=== PATIENT | female | born 1985 | race Caucasian/White ===

== ENCOUNTER 2017-04-05 11:04 | Inpatient (IN) | payer OTHER ==
[~2017-04-05 11:04] MED LIST: CEFAZOLIN 1 GM INJ
[2017-04-05] MEDS ORDERED: BUPIVACAINE 0.5% (SDV) 30 ML INJ (11:56)
[2017-04-05] MEDS ORDERED: LIDOCAINE 1%/EPI 30 ML INJ (11:56)
[2017-04-05] MEDS ORDERED: POLYMYXIN/BACITRACIN 1L IRRIG (11:57)
[2017-04-05] MEDS ORDERED: THROMBIN 5000 UNIT VIAL (11:57)
[2017-04-05] MEDS ORDERED: GELATIN SIZE 100 SPONGE (11:57)
[2017-04-05] MEDS ORDERED: METOCLOPRAMIDE 10 MG INJ (12:43)
[2017-04-05] MEDS ORDERED: ROCURONIUM 50 MG INJ (12:43)
[2017-04-05] MEDS ORDERED: MIDAZOLAM 1 MG/ML 2 ML INJ (12:43)
[2017-04-05] MEDS ORDERED: ONDANSETRON 4 MG INJ (12:43)
[2017-04-05] MEDS ORDERED: PROPOFOL 20 ML (12:43)
[2017-04-05] MEDS ORDERED: DIPHENHYDRAMINE 50 MG INJ (13:03)
[2017-04-05] MEDS ORDERED: DEXAMETHASONE 4 MG/ML 1 ML INJ (13:03)
[2017-04-05] MEDS ORDERED: HYDROmorphONE 2 MG/ML SYG (13:07)
[2017-04-05] MEDS ORDERED: METOPROLOL 5 MG INJ (13:27)
[2017-04-05] MEDS ORDERED: HYDROmorphONE (0.2 MG/ML) 10ML SYG IV ×2 (13:30)
[2017-04-05] MEDS ORDERED: DIPHENHYDRAMINE 50 MG INJ IV ×2 (13:30→15:00)
[2017-04-05] MEDS ORDERED: MEPERIDINE 25 MG INJ IV (13:30)
[2017-04-05] MEDS ORDERED: ONDANSETRON 4 MG INJ IV (13:30)
[2017-04-05] MEDS: BUPIVACAINE 0.5% 30 ML VIAL INJ (13:41)
[2017-04-05] MEDS: LIDOCAINE 1%/EPI 30 ML INJ INJ (13:41)
[2017-04-05] MEDS: POLYMYXIN/BACITRACIN 1L IRRIG IRR (13:42)
[2017-04-05] MEDS ORDERED: FENTAnyl 50 MCG/ML VIAL ×2 (14:32→15:10)
[2017-04-05] MEDS ORDERED: NALOXONE (0.4 MG/ML) INJ IV (15:00)
[2017-04-05] MEDS ORDERED: HYDROCODONE/APAP (10/325) TAB PO (16:30)
[2017-04-05] MEDS: HYDROmorphONE 0.2 MG/ML PCA IV (17:09)
[2017-04-05] MEDS: HYDROmorphONE (0.2 MG/ML) 10ML SYG IV (17:10)
[2017-04-05] MEDS: DEXTROSE 5%-LR 1,000 ML IV (18:45)
[2017-04-05] MEDS: ATORVASTATIN 40 MG TAB PO (21:13)
[2017-04-05] MEDS: CEFAZOLIN 1 GM/50 ML (PMX) 50 ML IVPB (21:13)
[2017-04-05] MEDS: CYCLOBENZAPRINE 10 MG TAB PO (23:40)
[2017-04-05] MEDS: OXYCODONE/ACETAMINOPHEN (5/325) TAB PO (23:55)
[2017-04-06] MEDS: HYDROmorphONE 0.2 MG/ML PCA IV ×2 (00:45→12:14)
[2017-04-06] MEDS: DEXTROSE 5%-LR 1,000 ML IV ×2 (02:30→03:54)
[2017-04-06] MEDS: OXYCODONE/ACETAMINOPHEN (5/325) TAB PO ×3 (03:55→21:09)
[2017-04-06] MEDS: CEFAZOLIN 1 GM/50 ML (PMX) 50 ML IVPB ×3 (05:07→21:08)
[2017-04-06] MEDS: DOCUSATE SODIUM 100 MG CAP PO ×2 (12:00→21:08)
[2017-04-06] MEDS: DEXAMETHASONE 4 MG/ML 1 ML INJ IV ×2 (12:12→21:08)
[2017-04-06] MEDS: AL HYDROX/MG HYDROX/SIMETH 30 ML CUP PO (12:22)
[2017-04-06 13:15] LABS: ADD MAN DIFF? NO
[2017-04-06 13:17] LABS: BASOPHILS % 0.2 % (0.0-2.0); EOSINOPHILS # 0.1 10^3/ul (0.0-0.5); EOSINOPHILS % 0.4 % (0.0-7.0); HEMATOCRIT 31.8 % (37.0-47.0); HEMOGLOBIN 10.6 g/dl (12.0-16.0); LYMPHOCYTES # 3.4 10^3/ul (0.8-2.9); LYMPHOCYTES % 20.4 % (15.0-51.0); MEAN CORPUSCULAR HEMOGLOBIN 28.6 pg (29.0-33.0); MEAN CORPUSCULAR HGB CONC 33.3 g/dl (32.0-37.0); MEAN CORPUSCULAR VOLUME 85.7 fl (82.0-101.0); MEAN PLATELET VOLUME 10.4 fl (7.4-10.4); MONOCYTE # 1.3 10^3/ul (0.3-0.9); MONOCYTES % 7.7 % (0.0-11.0); NEUTROPHIL # 11.7 10^3/ul (1.6-7.5); NEUTROPHILS % 70.8 % (39.0-77.0); PLATELET COUNT 207 10^3/UL (140-415); RED BLOOD COUNT 3.71 10^6/ul (4.20-5.40)
[2017-04-06 13:17] LABS: WHITE BLOOD COUNT 16.5 10^3/ul (4.8-10.8)
[2017-04-06 13:37] LABS: ANION GAP 10 (8-16); BLOOD UREA NITROGEN 8 mg/dl (7-20); CALCIUM 8.8 mg/dl (8.4-10.2); CARBON DIOXIDE 29 mmol/L (21-31); CHLORIDE 105 mmol/L (97-110); CREATININE 0.63 mg/dl (0.44-1.00); GLUCOSE 112 mg/dl (70-220); POTASSIUM 4.1 mmol/L (3.5-5.1); SODIUM 140 mmol/L (135-144)
[2017-04-06] MEDS: HYDROmorphONE 2 MG/ML SYG IV ×3 (15:29→23:35)
[2017-04-06] MEDS: ATORVASTATIN 40 MG TAB PO (21:08)
[2017-04-06] MEDS: CYCLOBENZAPRINE 10 MG TAB PO (21:09)
[2017-04-07] MEDS: DIPHENHYDRAMINE 50 MG INJ IV (00:12)
[2017-04-07] MEDS: OXYCODONE/ACETAMINOPHEN (5/325) TAB PO ×5 (02:10→19:40)
[2017-04-07] MEDS: HYDROmorphONE 2 MG/ML SYG IV ×5 (04:48→20:52)
[2017-04-07] MEDS: CYCLOBENZAPRINE 10 MG TAB PO ×2 (05:10→19:44)
[2017-04-07] MEDS: CEFAZOLIN 1 GM/50 ML (PMX) 50 ML IVPB ×3 (05:10→20:52)
[2017-04-07 05:38] LABS: ADD MAN DIFF? NO
[2017-04-07 05:44] LABS: WHITE BLOOD COUNT 18.7 10^3/ul (4.8-10.8)
[2017-04-07 05:44] LABS: BASOPHILS % 0.1 % (0.0-2.0); EOSINOPHILS % 0.1 % (0.0-7.0); HEMOGLOBIN 9.4 g/dl (12.0-16.0); LYMPHOCYTES # 1.8 10^3/ul (0.8-2.9); LYMPHOCYTES % 9.6 % (15.0-51.0); MEAN CORPUSCULAR HEMOGLOBIN 29.1 pg (29.0-33.0); MEAN CORPUSCULAR HGB CONC 33.6 g/dl (32.0-37.0); MEAN CORPUSCULAR VOLUME 86.7 fl (82.0-101.0); MEAN PLATELET VOLUME 10.9 fl (7.4-10.4); MONOCYTE # 0.8 10^3/ul (0.3-0.9); MONOCYTES % 4.5 % (0.0-11.0); NEUTROPHIL # 15.9 10^3/ul (1.6-7.5); NEUTROPHILS % 84.7 % (39.0-77.0); PLATELET COUNT 199 10^3/UL (140-415); RED BLOOD COUNT 3.23 10^6/ul (4.20-5.40); RED CELL DISTRIBUTION WIDTH 13.2 % (11.5-14.5)
[2017-04-07 06:17] LABS: ANION GAP 16 (8-16); BLOOD UREA NITROGEN 7 mg/dl (7-20); CALCIUM 8.8 mg/dl (8.4-10.2); CARBON DIOXIDE 29 mmol/L (21-31); CHLORIDE 106 mmol/L (97-110); CREATININE 0.62 mg/dl (0.44-1.00); GLUCOSE 127 mg/dl (70-220); POTASSIUM 4.6 mmol/L (3.5-5.1); SODIUM 146 mmol/L (135-144)
[2017-04-07] MEDS: DOCUSATE SODIUM 100 MG CAP PO ×2 (08:30→20:52)
[2017-04-07] MEDS: BISACODYL (EC) 5 MG TAB PO (11:38)
[2017-04-07] MEDS: HYDROmorphONE 0.5 MG/0.5 ML SYG IV (11:39)
[2017-04-07] MEDS: APIXABAN 5 MG TABLET PO (20:52)
[2017-04-07] MEDS: ATORVASTATIN 40 MG TAB PO (20:52)
[2017-04-07] MEDS: AL HYDROX/MG HYDROX/SIMETH 30 ML CUP PO (21:09)
[2017-04-08] MEDS: OXYCODONE/ACETAMINOPHEN (5/325) TAB PO ×7 (01:05→21:31)
[2017-04-08] MEDS: HYDROmorphONE 2 MG/ML SYG IV ×6 (02:19→23:50)
[2017-04-08 05:24] LABS: ADD MAN DIFF? NO
[2017-04-08 05:30] LABS: BASOPHILS % 0.3 % (0.0-2.0); EOSINOPHILS # 0.1 10^3/ul (0.0-0.5); EOSINOPHILS % 0.5 % (0.0-7.0); HEMATOCRIT 29.9 % (37.0-47.0); HEMOGLOBIN 9.7 g/dl (12.0-16.0); LYMPHOCYTES # 3.8 10^3/ul (0.8-2.9); LYMPHOCYTES % 29.3 % (15.0-51.0); MEAN CORPUSCULAR HEMOGLOBIN 28.5 pg (29.0-33.0); MEAN CORPUSCULAR HGB CONC 32.4 g/dl (32.0-37.0); MEAN CORPUSCULAR VOLUME 87.9 fl (82.0-101.0); MEAN PLATELET VOLUME 10.9 fl (7.4-10.4); MONOCYTE # 0.8 10^3/ul (0.3-0.9); MONOCYTES % 5.8 % (0.0-11.0); NEUTROPHIL # 8.2 10^3/ul (1.6-7.5); NEUTROPHILS % 63.3 % (39.0-77.0); PLATELET COUNT 158 10^3/UL (140-415); RED CELL DISTRIBUTION WIDTH 13.4 % (11.5-14.5)
[2017-04-08 06:36] LABS: ANION GAP 13 (8-16); BLOOD UREA NITROGEN 11 mg/dl (7-20); CALCIUM 8.3 mg/dl (8.4-10.2); CARBON DIOXIDE 29 mmol/L (21-31); CHLORIDE 107 mmol/L (97-110); CREATININE 0.66 mg/dl (0.44-1.00); GLUCOSE 135 mg/dl (70-220); POTASSIUM 3.6 mmol/L (3.5-5.1); SODIUM 145 mmol/L (135-144)
[2017-04-08] MEDS: DOCUSATE SODIUM 100 MG CAP PO ×2 (08:44→21:02)
[2017-04-08] MEDS: APIXABAN 5 MG TABLET PO ×2 (08:44→21:02)
[2017-04-08] MEDS: BISACODYL (EC) 5 MG TAB PO (08:47)
[2017-04-08] MEDS: CYCLOBENZAPRINE 10 MG TAB PO ×3 (09:47→21:30)
[2017-04-08] MEDS: ATORVASTATIN 40 MG TAB PO (21:02)
[2017-04-09] MEDS: HYDROmorphONE 2 MG/ML SYG IV (04:14)
[2017-04-09] MEDS: OXYCODONE/ACETAMINOPHEN (5/325) TAB PO ×2 (05:46→09:14)
[2017-04-09] MEDS: CYCLOBENZAPRINE 10 MG TAB PO (06:30)
[2017-04-09] MEDS: LORAZEPAM 2 MG INJ IV (06:31)
[2017-04-09] MEDS ORDERED: SUCCINYLCHOLINE CHLORIDE 100 MG/5 ML SYG IV (07:00)
[2017-04-09] MEDS ORDERED: EPHEDrine SULFATE 50 MG/5 ML SYG (07:00)
[2017-04-09] MEDS ORDERED: ROCURONIUM 50 MG INJ (07:00)
[2017-04-09] MEDS ORDERED: ESMOLOL 100 MG INJ (07:00)
[2017-04-09] MEDS ORDERED: CEFAZOLIN 1 GM INJ (07:00)
[2017-04-09] MEDS: DOCUSATE SODIUM 100 MG CAP PO ×2 (09:00→21:00)
[2017-04-09] MEDS: MAGNESIUM HYDROXIDE 30ML CUP PO (09:00)
[2017-04-09] MEDS: APIXABAN 5 MG TABLET PO (09:14)
[2017-04-09] MEDS: OXYCODONE/ACETAMINOPHEN (10/325) TAB PO ×3 (09:36→23:01)
[2017-04-09] MEDS ORDERED: MIDAZOLAM 1 MG/ML 2 ML INJ ×2 (13:45→13:49)
[2017-04-09] MEDS ORDERED: PROPOFOL 20 ML (13:45)
[2017-04-09] MEDS ORDERED: ONDANSETRON 4 MG INJ (13:46)
[2017-04-09] MEDS ORDERED: METOCLOPRAMIDE 10 MG INJ (13:46)
[2017-04-09] MEDS ORDERED: FENTAnyl 50 MCG/ML VIAL (13:49)
[2017-04-09] MEDS ORDERED: THROMBIN 5000 UNIT VIAL ×2 (13:59→14:04)
[2017-04-09] MEDS ORDERED: POLYMYXIN/BACITRACIN 1L IRRIG (13:59)
[2017-04-09] MEDS ORDERED: GELATIN SIZE 100 SPONGE (13:59)
[2017-04-09] MEDS ORDERED: LIDOCAINE 0.5% (MDV) 50 ML INJ (13:59)
[2017-04-09] MEDS ORDERED: DEXAMETHASONE 4 MG/ML 1 ML INJ (14:36)
[2017-04-09] MEDS ORDERED: HYDROmorphONE 2 MG/ML SYG (14:38)
[2017-04-09] MEDS ORDERED: PHENYLephrine (100 MCG/ML) 5ML SYG (14:39)
[2017-04-09] MEDS: POLYMYXIN/BACITRACIN 1L IRRIG IRR (14:56)
[2017-04-09] MEDS ORDERED: DIPHENHYDRAMINE 50 MG INJ IV ×2 (15:30→16:30)
[2017-04-09] MEDS ORDERED: HYDROmorphONE (0.2 MG/ML) 10ML SYG IV ×3 (15:30)
[2017-04-09] MEDS ORDERED: METOCLOPRAMIDE 10 MG INJ IV (15:30)
[2017-04-09] MEDS ORDERED: EPHEDrine SULFATE 50 MG/5 ML SYG IV (15:30)
[2017-04-09] MEDS ORDERED: NEOSTIGMINE 3 MG/3 ML SYRINGE (15:37)
[2017-04-09] MEDS: LIDOCAINE 1%/EPI 30 ML INJ (15:38)
[2017-04-09] MEDS ORDERED: ALBUMIN HUMAN 5% 250 ML (15:59)
[2017-04-09] MEDS: LIDOCAINE 1% (MPF) 5 ML VIAL SC (16:30)
[2017-04-09] MEDS ORDERED: HYDROmorphONE 0.5 MG/0.5 ML SYG IV ×2 (16:30)
[2017-04-09] MEDS ORDERED: OXYCODONE/ACETAMINOPHEN (5/325) TAB PO (16:30)
[2017-04-09] MEDS ORDERED: ONDANSETRON 4 MG INJ IV (16:30)
[2017-04-09] MEDS ORDERED: HYDROmorphONE 1 MG/ML SYG IV (16:30)
[2017-04-09] MEDS ORDERED: NALOXONE (0.4 MG/ML) INJ IV (16:30)
[2017-04-09] MEDS ORDERED: ACETAMINOPHEN 500 MG TAB PO (16:30)
[2017-04-09] MEDS: HYDROmorphONE 0.2 MG/ML PCA IV (16:35)
[2017-04-09] MEDS: MEPERIDINE 25 MG INJ IV (16:38)
[2017-04-09] MEDS: ONDANSETRON 4 MG INJ IV (16:38)
[2017-04-09] MEDS: DEXTROSE 5%-LR 1,000 ML IV ×2 (18:29→23:57)
[2017-04-09] MEDS: ATORVASTATIN 40 MG TAB PO (21:00)
[2017-04-09] MEDS: CEFAZOLIN 1 GM/50 ML (PMX) 50 ML IVPB (21:27)
[2017-04-10] MEDS: CYCLOBENZAPRINE 10 MG TAB PO ×2 (01:45→10:54)
[2017-04-10] MEDS: DEXTROSE 5%-LR 1,000 ML IV ×4 (03:27→22:04)
[2017-04-10] MEDS: CEFAZOLIN 1 GM/50 ML (PMX) 50 ML IVPB ×3 (05:06→22:44)
[2017-04-10 07:17] LABS: ADD MAN DIFF? NO
[2017-04-10 07:22] LABS: BASOPHILS % 0.1 % (0.0-2.0); HEMATOCRIT 26.6 % (37.0-47.0); HEMOGLOBIN 8.6 g/dl (12.0-16.0); LYMPHOCYTES # 1.2 10^3/ul (0.8-2.9); LYMPHOCYTES % 6.7 % (15.0-51.0); MEAN CORPUSCULAR HEMOGLOBIN 28.5 pg (29.0-33.0); MEAN CORPUSCULAR HGB CONC 32.3 g/dl (32.0-37.0); MEAN CORPUSCULAR VOLUME 88.1 fl (82.0-101.0); MEAN PLATELET VOLUME 10.2 fl (7.4-10.4); MONOCYTES % 5.8 % (0.0-11.0); NEUTROPHIL # 15.3 10^3/ul (1.6-7.5); NEUTROPHILS % 86.7 % (39.0-77.0); PLATELET COUNT 178 10^3/UL (140-415); RED BLOOD COUNT 3.02 10^6/ul (4.20-5.40)
[2017-04-10 07:22] LABS: WHITE BLOOD COUNT 17.6 10^3/ul (4.8-10.8)
[2017-04-10 07:37] LABS: PLATELET COUNT 178 10^3/UL (140-440)
[2017-04-10 07:39] LABS: INR 1.19; PROTIME 15.3 Sec (11.9-14.9); PT RATIO 1.2
[2017-04-10 07:40] LABS: PARTIAL THROMBOPLASTIN TIME 38.3 Sec (25.0-35.0)
[2017-04-10 07:50] LABS: ANION GAP 12 (8-16); BLOOD UREA NITROGEN 9 mg/dl (7-20); CALCIUM 8.5 mg/dl (8.4-10.2); CARBON DIOXIDE 30 mmol/L (21-31); CHLORIDE 108 mmol/L (97-110); CREATININE 0.63 mg/dl (0.44-1.00); GLUCOSE 133 mg/dl (70-220); POTASSIUM 4.9 mmol/L (3.5-5.1); SODIUM 145 mmol/L (135-144)
[2017-04-10] MEDS: DOCUSATE SODIUM 100 MG CAP PO ×2 (08:51→21:22)
[2017-04-10] MEDS: MAGNESIUM HYDROXIDE 30ML CUP PO ×2 (08:51→17:57)
[2017-04-10] MEDS: HYDROmorphONE 2 MG/ML SYG IV ×3 (09:28→22:05)
[2017-04-10] MEDS: HYDROmorphONE 0.2 MG/ML PCA IV (11:51)
[2017-04-10] MEDS: OXYCODONE/ACETAMINOPHEN (10/325) TAB PO ×2 (13:36→17:55)
[2017-04-10] MEDS: ATORVASTATIN 40 MG TAB PO (21:22)
[2017-04-10] MEDS: BISACODYL (EC) 5 MG TAB PO (22:12)
[2017-04-11] MEDS: DEXTROSE 5%-LR 1,000 ML IV (05:37)
[2017-04-11] MEDS: CEFAZOLIN 1 GM/50 ML (PMX) 50 ML IVPB ×3 (05:38→21:36)
[2017-04-11] MEDS: HYDROmorphONE 2 MG/ML SYG IV ×3 (05:46→20:19)
[2017-04-11] MEDS: morphine 2 MG INJ IV (08:14)
[2017-04-11 08:51] LABS: ADD MAN DIFF? NO
[2017-04-11 09:00] LABS: WHITE BLOOD COUNT 12.6 10^3/ul (4.8-10.8)
[2017-04-11 09:00] LABS: BASOPHILS % 0.2 % (0.0-2.0); EOSINOPHILS # 0.2 10^3/ul (0.0-0.5); EOSINOPHILS % 1.8 % (0.0-7.0); HEMATOCRIT 26.8 % (37.0-47.0); HEMOGLOBIN 8.5 g/dl (12.0-16.0); LYMPHOCYTES # 3.4 10^3/ul (0.8-2.9); LYMPHOCYTES % 27.3 % (15.0-51.0); MEAN CORPUSCULAR HEMOGLOBIN 28.3 pg (29.0-33.0); MEAN CORPUSCULAR HGB CONC 31.7 g/dl (32.0-37.0); MEAN CORPUSCULAR VOLUME 89.3 fl (82.0-101.0); MEAN PLATELET VOLUME 10.2 fl (7.4-10.4); MONOCYTE # 0.8 10^3/ul (0.3-0.9); MONOCYTES % 6.5 % (0.0-11.0); NEUTROPHILS % 63.8 % (39.0-77.0); PLATELET COUNT 202 10^3/UL (140-415); RED CELL DISTRIBUTION WIDTH 13.1 % (11.5-14.5)
[2017-04-11 09:23] LABS: ANION GAP 12 (8-16); BLOOD UREA NITROGEN 10 mg/dl (7-20); CALCIUM 8.1 mg/dl (8.4-10.2); CARBON DIOXIDE 30 mmol/L (21-31); CHLORIDE 106 mmol/L (97-110); CREATININE 0.66 mg/dl (0.44-1.00); GLUCOSE 80 mg/dl (70-220); POTASSIUM 4.1 mmol/L (3.5-5.1); SODIUM 144 mmol/L (135-144)
[2017-04-11 09:29] LABS: INR 0.92; PARTIAL THROMBOPLASTIN TIME 27.5 Sec (25.0-35.0); PROTIME 12.4 Sec (11.9-14.9)
[2017-04-11] MEDS: DOCUSATE SODIUM 100 MG CAP PO ×2 (09:29→21:33)
[2017-04-11] MEDS: OXYCODONE/ACETAMINOPHEN (10/325) TAB PO ×4 (09:29→21:35)
[2017-04-11] MEDS: CYCLOBENZAPRINE 10 MG TAB PO (11:01)
[2017-04-11] MEDS: ATORVASTATIN 40 MG TAB PO (21:33)
[2017-04-12] MEDS: HYDROmorphONE 2 MG/ML SYG IV ×6 (00:38→23:06)
[2017-04-12] MEDS: OXYCODONE/ACETAMINOPHEN (10/325) TAB PO ×4 (02:10→21:41)
[2017-04-12] MEDS: CEFAZOLIN 1 GM/50 ML (PMX) 50 ML IVPB ×3 (05:21→21:44)
[2017-04-12] MEDS: DOCUSATE SODIUM 100 MG CAP PO ×2 (08:04→20:47)
[2017-04-12] MEDS: MAGNESIUM HYDROXIDE 30ML CUP PO (10:04)
[2017-04-12] MEDS: HARD FAT/PHENYLEPHRINE SUPP PR ×2 (10:04→20:55)
[2017-04-12] MEDS: OXYCODONE/ACETAMINOPHEN (5/325) TAB PO (17:25)
[2017-04-12] MEDS: ATORVASTATIN 40 MG TAB PO (20:47)
[2017-04-13] MEDS: OXYCODONE/ACETAMINOPHEN (10/325) TAB PO ×6 (02:14→23:54)
[2017-04-13] MEDS: HYDROmorphONE 2 MG/ML SYG IV ×5 (05:11→21:11)
[2017-04-13 05:34] LABS: ADD MAN DIFF? NO
[2017-04-13 05:41] LABS: WHITE BLOOD COUNT 9.9 10^3/ul (4.8-10.8)
[2017-04-13 05:41] LABS: BASOPHILS % 0.2 % (0.0-2.0); EOSINOPHILS # 0.4 10^3/ul (0.0-0.5); EOSINOPHILS % 3.7 % (0.0-7.0); HEMATOCRIT 27.6 % (37.0-47.0); HEMOGLOBIN 8.8 g/dl (12.0-16.0); LYMPHOCYTES % 30.1 % (15.0-51.0); MEAN CORPUSCULAR HEMOGLOBIN 27.8 pg (29.0-33.0); MEAN CORPUSCULAR HGB CONC 31.9 g/dl (32.0-37.0); MEAN CORPUSCULAR VOLUME 87.1 fl (82.0-101.0); MEAN PLATELET VOLUME 9.9 fl (7.4-10.4); MONOCYTE # 0.6 10^3/ul (0.3-0.9); MONOCYTES % 6.2 % (0.0-11.0); NEUTROPHIL # 5.8 10^3/ul (1.6-7.5); NEUTROPHILS % 58.8 % (39.0-77.0); PLATELET COUNT 260 10^3/UL (140-415); RED BLOOD COUNT 3.17 10^6/ul (4.20-5.40); RED CELL DISTRIBUTION WIDTH 13.2 % (11.5-14.5)
[2017-04-13 06:15] LABS: ANION GAP 14 (8-16); BLOOD UREA NITROGEN 7 mg/dl (7-20); CALCIUM 8.8 mg/dl (8.4-10.2); CARBON DIOXIDE 31 mmol/L (21-31); CHLORIDE 104 mmol/L (97-110); CREATININE 0.68 mg/dl (0.44-1.00); GLUCOSE 108 mg/dl (70-220); POTASSIUM 4.7 mmol/L (3.5-5.1); SODIUM 144 mmol/L (135-144)
[2017-04-13] MEDS: CEFAZOLIN 1 GM/50 ML (PMX) 50 ML IVPB ×3 (06:17→22:13)
[2017-04-13] MEDS: DOCUSATE SODIUM 100 MG CAP PO ×2 (08:57→22:13)
[2017-04-13] MEDS: HARD FAT/PHENYLEPHRINE SUPP PR ×2 (08:57→21:00)
[2017-04-13] MEDS: MAGNESIUM HYDROXIDE 30ML CUP PO (08:57)
[2017-04-13] MEDS: PE/SHARK OIL/MO/PETROL 30 GM OINT PR (22:00)
[2017-04-13] MEDS: ATORVASTATIN 40 MG TAB PO (22:13)
[2017-04-13] MEDS: AL HYDROX/MG HYDROX/SIMETH 30 ML CUP PO (22:13)
[2017-04-14] MEDS: HYDROmorphONE 2 MG/ML SYG IV ×5 (00:55→14:03)
[2017-04-14] MEDS: OXYCODONE/ACETAMINOPHEN (10/325) TAB PO ×4 (03:52→23:15)
[2017-04-14 05:37] LABS: ADD MAN DIFF? NO
[2017-04-14] MEDS: CEFAZOLIN 1 GM/50 ML (PMX) 50 ML IVPB ×3 (05:37→21:16)
[2017-04-14 05:45] LABS: WHITE BLOOD COUNT 10.1 10^3/ul (4.8-10.8)
[2017-04-14 05:45] LABS: BASOPHILS % 0.2 % (0.0-2.0); EOSINOPHILS # 0.4 10^3/ul (0.0-0.5); EOSINOPHILS % 4.1 % (0.0-7.0); HEMATOCRIT 27.1 % (37.0-47.0); HEMOGLOBIN 8.6 g/dl (12.0-16.0); LYMPHOCYTES # 2.7 10^3/ul (0.8-2.9); LYMPHOCYTES % 27.1 % (15.0-51.0); MEAN CORPUSCULAR HEMOGLOBIN 27.7 pg (29.0-33.0); MEAN CORPUSCULAR HGB CONC 31.7 g/dl (32.0-37.0); MEAN CORPUSCULAR VOLUME 87.4 fl (82.0-101.0); MEAN PLATELET VOLUME 9.8 fl (7.4-10.4); MONOCYTE # 0.7 10^3/ul (0.3-0.9); MONOCYTES % 6.7 % (0.0-11.0); NEUTROPHIL # 6.1 10^3/ul (1.6-7.5); PLATELET COUNT 264 10^3/UL (140-415); RED CELL DISTRIBUTION WIDTH 13.1 % (11.5-14.5)
[2017-04-14 06:03] LABS: ANION GAP 13 (8-16); BLOOD UREA NITROGEN 8 mg/dl (7-20); CALCIUM 8.9 mg/dl (8.4-10.2); CARBON DIOXIDE 33 mmol/L (21-31); CHLORIDE 102 mmol/L (97-110); CREATININE 0.76 mg/dl (0.44-1.00); GLUCOSE 117 mg/dl (70-220); POTASSIUM 4.6 mmol/L (3.5-5.1); SODIUM 143 mmol/L (135-144)
[2017-04-14] MEDS: HARD FAT/PHENYLEPHRINE SUPP PR ×2 (09:00→20:29)
[2017-04-14] MEDS: PE/SHARK OIL/MO/PETROL 30 GM OINT PR ×2 (09:00→20:29)
[2017-04-14] MEDS: DOCUSATE SODIUM 100 MG CAP PO ×2 (11:16→20:12)
[2017-04-14] MEDS: MAGNESIUM HYDROXIDE 30ML CUP PO (11:17)
[2017-04-14] MEDS: HYDROmorphONE 2 MG TAB PO ×2 (16:22→21:16)
[2017-04-14] MEDS: ATORVASTATIN 40 MG TAB PO (20:12)
[2017-04-14] MEDS: CYCLOBENZAPRINE 10 MG TAB PO (20:12)
[2017-04-15] MEDS: CEFAZOLIN 1 GM/50 ML (PMX) 50 ML IVPB ×2 (05:05→14:00)
[2017-04-15] MEDS: OXYCODONE/ACETAMINOPHEN (10/325) TAB PO ×3 (07:53→18:33)
[2017-04-15] MEDS: HARD FAT/PHENYLEPHRINE SUPP PR ×2 (09:00→21:00)
[2017-04-15] MEDS: PE/SHARK OIL/MO/PETROL 30 GM OINT PR ×2 (09:00→18:34)
[2017-04-15] MEDS: MAGNESIUM HYDROXIDE 30ML CUP PO (09:21)
[2017-04-15] MEDS: CYCLOBENZAPRINE 10 MG TAB PO ×2 (09:21→17:02)
[2017-04-15] MEDS: DOCUSATE SODIUM 100 MG CAP PO ×2 (09:21→20:44)
[2017-04-15] MEDS: HYDROmorphONE 2 MG TAB PO ×3 (11:00→20:45)
[2017-04-15] MEDS: ATORVASTATIN 40 MG TAB PO (20:44)
[2017-04-16] MEDS: OXYCODONE/ACETAMINOPHEN (10/325) TAB PO ×4 (00:30→20:34)
[2017-04-16] MEDS: CYCLOBENZAPRINE 10 MG TAB PO ×2 (02:09→11:36)
[2017-04-16] MEDS: MAGNESIUM HYDROXIDE 30ML CUP PO (08:47)
[2017-04-16] MEDS: DOCUSATE SODIUM 100 MG CAP PO ×2 (08:47→20:34)
[2017-04-16] MEDS: PE/SHARK OIL/MO/PETROL 30 GM OINT PR ×2 (08:48→20:35)
[2017-04-16] MEDS: HARD FAT/PHENYLEPHRINE SUPP PR ×2 (08:48→20:35)
[2017-04-16] MEDS: HYDROmorphONE 2 MG TAB PO ×2 (10:12→17:13)
[2017-04-16] MEDS: ATORVASTATIN 40 MG TAB PO (20:34)
[2017-04-17] MEDS: HYDROmorphONE 2 MG TAB PO ×4 (00:07→23:45)
[2017-04-17] MEDS: CYCLOBENZAPRINE 10 MG TAB PO ×2 (00:07→18:57)
[2017-04-17 05:09] LABS: ADD MAN DIFF? NO
[2017-04-17 05:11] LABS: WHITE BLOOD COUNT 8.7 10^3/ul (4.8-10.8)
[2017-04-17 05:11] LABS: BASOPHILS % 0.3 % (0.0-2.0); EOSINOPHILS # 0.4 10^3/ul (0.0-0.5); EOSINOPHILS % 4.2 % (0.0-7.0); HEMATOCRIT 27.6 % (37.0-47.0); HEMOGLOBIN 8.8 g/dl (12.0-16.0); LYMPHOCYTES # 2.8 10^3/ul (0.8-2.9); MEAN CORPUSCULAR HEMOGLOBIN 27.4 pg (29.0-33.0); MEAN CORPUSCULAR HGB CONC 31.9 g/dl (32.0-37.0); MEAN PLATELET VOLUME 9.8 fl (7.4-10.4); MONOCYTE # 0.7 10^3/ul (0.3-0.9); MONOCYTES % 8.5 % (0.0-11.0); NEUTROPHIL # 4.7 10^3/ul (1.6-7.5); NEUTROPHILS % 53.9 % (39.0-77.0); PLATELET COUNT 253 10^3/UL (140-415); RED BLOOD COUNT 3.21 10^6/ul (4.20-5.40); RED CELL DISTRIBUTION WIDTH 13.1 % (11.5-14.5)
[2017-04-17 05:43] LABS: ANION GAP 12 (8-16); BLOOD UREA NITROGEN 10 mg/dl (7-20); CALCIUM 8.8 mg/dl (8.4-10.2); CARBON DIOXIDE 28 mmol/L (21-31); CHLORIDE 107 mmol/L (97-110); CREATININE 0.68 mg/dl (0.44-1.00); GLUCOSE 94 mg/dl (70-220); POTASSIUM 4.2 mmol/L (3.5-5.1); SODIUM 143 mmol/L (135-144)
[2017-04-17] MEDS: DOCUSATE SODIUM 100 MG CAP PO ×2 (08:24→20:36)
[2017-04-17] MEDS: OXYCODONE/ACETAMINOPHEN (10/325) TAB PO ×3 (08:24→20:36)
[2017-04-17] MEDS: ENOXAPARIN 40 MG/0.4 ML SYG SC (08:24)
[2017-04-17] MEDS: HARD FAT/PHENYLEPHRINE SUPP PR ×2 (08:28→21:00)
[2017-04-17] MEDS: MAGNESIUM HYDROXIDE 30ML CUP PO (08:28)
[2017-04-17] MEDS: PE/SHARK OIL/MO/PETROL 30 GM OINT PR ×2 (08:29→20:37)
[2017-04-17] MEDS: APIXABAN 5 MG TABLET PO ×2 (13:42→20:37)
[2017-04-17 16:36] LABS: HOMOCYSTEINE - CARDIOVASCULAR 8.5 umol/L (<10.4)
[2017-04-17] MEDS: ATORVASTATIN 40 MG TAB PO (20:35)
[2017-04-18] MEDS: OXYCODONE/ACETAMINOPHEN (10/325) TAB PO ×2 (03:31→10:44)
[2017-04-18] MEDS: HYDROmorphONE 2 MG TAB PO ×2 (07:32→13:26)
[2017-04-18] MEDS: MAGNESIUM HYDROXIDE 30ML CUP PO (08:17)
[2017-04-18] MEDS: HARD FAT/PHENYLEPHRINE SUPP PR (08:17)
[2017-04-18] MEDS: PE/SHARK OIL/MO/PETROL 30 GM OINT PR (08:18)
[2017-04-18] MEDS: DOCUSATE SODIUM 100 MG CAP PO (08:22)
[2017-04-18] MEDS: APIXABAN 5 MG TABLET PO (08:22)
== END 2017-04-18 15:35 | disposition home or self-care (01) | DRG 453 ==
LOC: REC 11:04 → MS1 18:23
PROC: 01NB0ZZ Release Lumbar Nerve, Open Approach (ICD-10-PCS; principal; 2017-04-05 12:48)
PROC: 0SG10AJ Fusion of 2 or more Lumbar Vertebral Joints with Interbody Fusion Device, Posterior Approach, Anterior Column, Open Approach (ICD-10-PCS; 2017-04-05 12:48)
PROC: 0SG10K1 Fusion of 2 or more Lumbar Vertebral Joints with Nonautologous Tissue Substitute, Posterior Approach, Posterior Column, Open Approach (ICD-10-PCS; 2017-04-05 12:48)
PROC: 0SB20ZZ Excision of Lumbar Vertebral Disc, Open Approach (ICD-10-PCS; 2017-04-05 12:48)
PROC: 009U0ZZ Drainage of Spinal Canal, Open Approach (ICD-10-PCS; 2017-04-05 12:48)
DX: M48.061 Spinal stenosis, lumbar region without neurogenic claudication (principal); I26.99 Other pulmonary embolism without acute cor pulmonale; K85.90 Acute pancreatitis without necrosis or infection, unspecified; M96.830 Postprocedural hemorrhage of a musculoskeletal structure following a musculoskeletal system procedure; I69.954 Hemiplegia and hemiparesis following unspecified cerebrovascular disease affecting left non-dominant side; Y83.9 Surgical procedure, unspecified as the cause of abnormal reaction of the patient, or of later complication, without mention of misadventure at the time of the procedure; E78.5 Hyperlipidemia, unspecified; E66.9 Obesity, unspecified; Z68.36 Body mass index [BMI] 36.0-36.9, adult; R32 Unspecified urinary incontinence; I10 Essential (primary) hypertension; E11.65 Type 2 diabetes mellitus with hyperglycemia
CPT/HCPCS: 72114; 72148; 80048; 81240; 83090; 83890; 85025; 85049; 85300; 85302; 85305; 85610; 85613; 85670; 85730; 86146; 86147; 86850; 86900; 86901; 86920; 87086; 88304; 93970; 97116; 97161; 97530